=== PATIENT | female | born 2005 | race Caucasian/White ===

== ENCOUNTER 2024-09-07 01:03 | Emergency (ER) | payer BC, SELFPAY ==
[2024-09-07 01:08] VITALS: BP 100/64; BP 104/70; PULSE 92; PULSE 99; RESP 16; TEMP 36.3; O2SAT 98; O2SAT 99; BMI 21.8
[2024-09-07] MEDS: Ondansetron ODT 4 MG TAB.RAPDIS TRANSLINGU (01:26)
[2024-09-07 01:53] LABS: MANUAL DIFF FLAG NO
[2024-09-07 01:54] LABS: Basophils Absolute Auto 0.1 X10*3/uL (0.0-0.2); Basophils Percent Auto 0.3 % (0-2); Eosinophils Absolute Auto 0.1 X10*3/uL (0.0-0.4); Eosinophils Percent Auto 0.3 % (0-4); Hematocrit 44.4 % (37.0-47.0); Hemoglobin 15.7 g/dl (12.0-16.0); Imm Gran Abs Auto 0.09 X10*3/uL (0.00-0.03); Imm Gran Pct Auto 0.4 % (0.0-0.4); Lymphocytes Absolute Auto 0.8 X10*3/uL (1.2-4.9); Lymphocytes Percent Auto 3.8 % (20-40); Mean Corpuscular HGB Conc 35.4 g/dl (31.0-35.0); Mean Corpuscular Hemoglobin 29.9 pg (27.0-33.0); Mean Corpuscular Volume 84.6 fL (80.0-98.0); Mean Platelet Volume 10.7 fL (9.4-12.3); Monocytes Absolute Auto 1.2 X10*3/uL (0.1-1.2); Monocytes Percent Auto 5.7 % (2-11); Neutrophils Percent Auto 89.5 % (45-73); Platelet Count 303 X10*3/uL (160-400); Red Blood Count 5.25 X10*6/uL (4.20-5.50); Red Cell Distribution Width 11.6 % (11.0-16.0); White Blood Count 21.3 X10*3/uL (4.8-10.8)
[2024-09-07 02:16] LABS: Alanine Aminotransferase 11 U/L (0-31); Albumin Level 5.2 g/dL (3.5-5.0); Anion Gap 17 (12-20); Aspartate Amino Transferase 25 U/L (5-31); Blood Urea Nitrogen 19 mg/dL (9-16); Calcium 10.5 mg/dL (8.4-10.2); Carbon Dioxide 22 mmol/L (22-29); Chloride 104 mmol/L (96-108); Creatinine Clr Calc Pharmacy 92.5; Estimated Glomerular Filt Rate > 60; Glucose Random 128 mg/dL (60-115); Potassium 3.9 mmol/L (3.3-5.1); Sodium 139 mmol/L (135-145); Total Protein 8.5 g/dL (6.5-8.0)
[2024-09-07 02:31] LABS: Influenza A PCR NEGATIVE (Negative); Influenza B PCR NEGATIVE (Negative); Resp Syncy Virus RNA Qual PCR NEGATIVE (Negative); SARS COV2 PCR INHOUSE NEGATIVE (Negative)
[2024-09-07 02:34] LABS: Alkaline Phosphatase 49 U/L (39-117)
[2024-09-07 05:21] VITALS: BP 116/76; PULSE 89; RESP 16; TEMP 36.9; O2SAT 100
--- NOTE | 2024-09-07 07:02 | ED_ITS ---
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,denies fever and absominal pain MD elicited complaint: nausea, vomiting and diarrhea Onset (ago): day(s) (1) Description of vomiting: watery Description of diarrhea: watery Associated abdominal pain: No Radiation: diffuse Pain consistency: constant Quality: cramping Exacerbating factors: none Relieving factors: none Related Data Previous Rx's ?Medication ?Instructions ?Recorded ondansetron 4 mg disintegrating 4 mg PO Q8H 5 days #15 tabs 09/07/24 tablet Allergies Allergy/AdvReac Type Severity Reaction Status Date / Time metoclopramide [From Reglan] Allergy Shakiness Verified 09/07/24 01:14 Review of Systems 2 ENT: Reports system reviewed and no additional complaints, except as documented Cardiovascular: Cardiovascular: Reports no additional cardiovascular complaints Gastrointestinal: Gastrointestinal: Reports as per [facility] Past Medical History Attestation statement: The following information was validated with the patient. [facility] Narrative: depression/anxiety Social History Social History Smoked in Last 30 Days: No Use of substances other than those prescribed or required for medical reasons: No Advance Directives: No Advance Directives Information Provided: Yes Do you have a plan to hurt others: No Plan Physical Exam 2 Vital Signs: Vital Signs: Last Vital Signs Temp 98.5 F 09/07/24 10:37 Pulse 89 09/07/24 10:37 Resp 16 09/07/24 10:37 BP 116/76 09/07/24 10:37 Pulse Ox 100 09/07/24 10:37 O2 Del Method Room Air 09/07/24 10:37 BMI result Body Mass Index 21.8 no toxic looksa well Const: General: cooperative and comfortable Nutritional Appearance: well nourished Orientation/consciousness: patient oriented x3 HEENT: Head: Yes normal to inspection General nose exam: Normal external nose present Face and sinus: Yes normal facial exam Throat: Yes posterior oropharynx normal Neck: Neck: Yes normal visual inspection Resp: Effort & Inspection: normal respiratory effort Cardio: Jugular venous distension: no JVD Rate: regular rate Rhythm: r egular rhythm GI: Inspection: Yes normal to inspection Palpation (GI): Soft to palpation, not firm and nontender Auscultation: normal bowel sounds : General: Yes no CVA tenderness Back/Spine/Pelvis: Back: no CVA tenderness Skin: General skin exam: no rashes or lesions noted Lesions: no lesions Rashes: no rashes Neuro: General: patient oriented x3 Course Reevaluation(s) Reevaluation #1: WBC down trending, she is feeling much better, she is tolerating p.o. well, vital signs are stable I think at this point she can be safely discharged home patient is very comfortable with that to the mother as well Time: 10:15 Medications Administered Discontinued Medications Generic Name Dose Route Start Last Admin Trade Name Freq PRN Reason Stop Dose Admin Lactated Ringer's 1,000 mls @ 999 mls/hr 09/07/24 07:00 09/07/24 09:05 Lr IV 09/07/24 08:00 Infused .Q1H1M LAM Infusion Lactated Ringer's 1,000 mls @ 999 mls/hr 09/07/24 07:00 09/07/24 09:05 Lr IV 09/07/24 08:00 Infused .Q1H1M LAM Infusion Ondansetron HCl 4 mg 09/07/24 01:21 09/07/24 01:26 Ondansetron Odt 4 Mg Tab.Rapdis TRANSLINGU 09/07/24 01:22 4 mg ONCE ONE Administration Ondansetron HCl 4 mg 09/07/24 07:00 09/07/24 07:41 Ondansetron Hcl 4 Mg/2 Ml Vial IVPUSH 09/07/24 07:01 4 mg ONCE ONE Administration Medical Decision Making Medical Decision Making [facility] Narrative: here for nausea/vomiting diarrhea will get labs /IV fluids Differential Diagnosis Differential Diagnoses: The differential diagnosis associated with the presentation includes viral gastroenteritis/colitis Lab Data 09/07/24 09:36 09/07/24 01:48 Labs: Lab Results 09/07/24 09/07/24 Range/Units 01:48 09:36 WBC 21.3 H 17.5 H (4.8-10.8) X10*3/uL RBC 5.25 4.31 (4.20-5.50) X10*6/uL Hgb 15.7 13.1 (12.0-16.0) g/dl Hct 44.4 37.1 (37.0-47.0) % MCV 84.6 86.1 (80.0-98.0) fL MCH 29.9 30.4 (27.0-33.0) pg MCHC 35.4 H 35.3 H (31.0-35.0) g/dl RDW 11.6 11.6 (11.0-16.0) % Plt Count 303 256 (160-400) X10*3/uL MPV 10.7 11.1 (9.4-12.3) fL Immature Gran % (Auto) 0.4 0.7 H (0.0-0.4) % Neut % (Auto) 89.5 H 93.2 H (45-73) % Lymph % (Auto) 3.8 L 2.1 L (20-40) % Harlan % (Auto) 5.7 3.8 (2-11) % Eos % (Auto) 0.3 0.0 (0-4) % Baso % (Auto) 0.3 0.2 (0-2) % Lymph # (Auto) 0.8 L 0.4 L (1.2-4.9) X10*3/uL Harlan # (Auto) 1.2 0.7 (0.1-1.2) X10*3/uL Eos # (Auto) 0.1 0.0 (0.0-0.4) X10*3/uL Baso # (Auto) 0.1 0.0 (0.0-0.2) X10*3/uL Abs Immat Gran (auto) 0.09 H 0.12 H (0.00-0.03) X10*3/uL Absolute Neuts (auto) 19.0 H 16.4 H (2.0-8.3) x10*3/uL Absolute Nucleated RBC 0.000 0.000 (0.0-0.012) X10*3/uL Nucleated RBC % (auto) 0.0 0.0 (0.0-0.2) /100WBC Smear Tech's Comments VERIFIED Sodium 139 (135-145) mmol/L Potassium 3.9 (3.3-5.1) mmol/L Chloride 104 (96-108) mmol/L Carbon Dioxide 22 (22-29) mmol/L Anion Gap 17 (12-20) BUN 19 H (9-16) mg/dL Creatinine 0.90 (0.5-1.4) mg/dL Estim Creat Clear Calc 92.5 Estimated GFR > 60 Random Glucose 128 H (60-115) mg/dL Calcium 10.5 H (8.4-10.2) mg/dL Total Bilirubin 1.0 (0.0-1.0) mg/dL AST 25 (5-31) U/L ALT 11 (0-31) U/L Alkaline Phosphatase 49 (39-117) U/L Total Protein 8.5 H (6.5-8.0) g/dL Albumin 5.2 H (3.5-5.0) g/dL Beta HCG, Quant < 2 mIU/mL Influenza Type A (PCR) NEGATIVE (Negative) Influenza Type B (PCR) NEGATIVE (Negative) RSV RNA Qual (PCR) NEGATIVE (Negative) SARS-CoV-2 RNA (RT-PCR) NEGATIVE (Negative) Discharge Plan Discharge Clinical Impression: Vomiting Patient Disposition: Home, Self-Care Instructions: Acute Nausea and Vomiting (ED) Additional Instructions: You should be on liquid diet today, return to the emergency room if you are feeling worse any concern Prescriptions: New ondansetron 4 mg tablet,disintegrating 4 mg PO Q8H 5 Days Qty: 15 0RF Stand Alone Forms: Work/School Release Interventions: ED Discharge Assessment Last Done: 09/07/24 10:37 Discharge Date/Time: 09/07/24 10:59 Print Language: Slovak
[2024-09-07] MEDS: Lactated Ringers 1,000 ML 999 ML IV ×2 (07:41→09:05)
[2024-09-07] MEDS: ondansetron HCL 4 MG/2 ML VIAL IVPUSH (07:41)
[2024-09-07 09:41] LABS: Basophils Percent Auto 0.2 % (0-2); Hematocrit 37.1 % (37.0-47.0); Hemoglobin 13.1 g/dl (12.0-16.0); Imm Gran Abs Auto 0.12 X10*3/uL (0.00-0.03); Imm Gran Pct Auto 0.7 % (0.0-0.4); Lymphocytes Absolute Auto 0.4 X10*3/uL (1.2-4.9); Lymphocytes Percent Auto 2.1 % (20-40); MANUAL DIFF FLAG SCAN; Mean Corpuscular HGB Conc 35.3 g/dl (31.0-35.0); Mean Corpuscular Hemoglobin 30.4 pg (27.0-33.0); Mean Corpuscular Volume 86.1 fL (80.0-98.0); Mean Platelet Volume 11.1 fL (9.4-12.3); Monocytes Absolute Auto 0.7 X10*3/uL (0.1-1.2); Monocytes Percent Auto 3.8 % (2-11); Neutrophils Absolute Auto 16.4 x10*3/uL (2.0-8.3); Neutrophils Percent Auto 93.2 % (45-73); Platelet Count 256 X10*3/uL (160-400); Red Blood Count 4.31 X10*6/uL (4.20-5.50); Red Cell Distribution Width 11.6 % (11.0-16.0); SCAN SMEAR FLAG 1; White Blood Count 17.5 X10*3/uL (4.8-10.8)
[2024-09-07 10:10] LABS: SLIDE REVIEW VERIFIED
[2024-09-07 10:37] VITALS: BP 116/76; PULSE 89; RESP 16; TEMP 36.9; O2SAT 100
[2024-09-07 10:52] LABS: HCG Quantitative < 2 mIU/mL
== END 2024-09-07 10:59 | disposition home or self-care (01) ==
PROVIDERS: Emergency Provider Emergency Medicine
DX: R11.2 Nausea with vomiting, unspecified (principal); R19.7 Diarrhea, unspecified; R10.2 Pelvic and perineal pain; Z79.899 Other long term (current) drug therapy; Z03.818 Encounter for observation for suspected exposure to other biological agents ruled out
CPT/HCPCS: 0241U; 36415; 80053; 84702; 85025; 96365; 96367; 96375; 99284; J2405; J7120